=== PATIENT | male | born 1995 | race Caucasian/White ===

== ENCOUNTER 2017-08-01 17:35 | Emergency (ER) | payer OTHER ==
[~2017-08-01] VITALS: Ht 180.3 cm; Wt 117.9 kg
[2017-08-01 17:43] VITALS: BP 109/67
[2017-08-01 20:15] VITALS: BP 116/64
== END 2017-08-01 20:15 | disposition home or self-care (01) ==
LOC: MED 17:53
DX: K04.7 Periapical abscess without sinus (principal)
CPT/HCPCS: 70110; 99284

== ENCOUNTER 2018-08-11 11:04 | Emergency (ER) | payer SELFPAY ==
[~2018-08-11] VITALS: Ht 180.3 cm; Wt 86.2 kg
[2018-08-11 11:16] VITALS: BP 134/78
--- NOTE | 2018-08-11 11:16 | NUR ---
Patient ambulated to bed 12. RN evaluating patient at bedside.
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
--- NOTE | 2018-08-11 11:23 | NUR ---
Pop fontanez in ED - 08/11/18 at 1124 by [email or web address] Patient ambulated to bed 5 with family. RN evaluating patient at bedside.
--- NOTE | 2018-08-11 11:23 | NUR ---
Patient ambulated to bed 5 with family. RN evaluating patient at bedside.
--- NOTE | 2018-08-11 13:25 | NUR ---
PT NOT IN ROOM 12 NOR IN ER LOBBY
== END 2018-08-11 13:20 | disposition left against medical advice (07) ==
LOC: MED 11:04
DX: M54.6 Pain in thoracic spine (principal); Z53.21 Procedure and treatment not carried out due to patient leaving prior to being seen by health care provider; V19.9XXA Pedal cyclist (driver) (passenger) injured in unspecified traffic accident, initial encounter; Y93.89 Activity, other specified; Y92.89 Other specified places as the place of occurrence of the external cause; Y99.8 Other external cause status

== ENCOUNTER 2019-06-30 18:13 | Emergency (ER) | payer SELFPAY ==
[~2019-06-30] VITALS: Ht 177.8 cm; Wt 90.7 kg
[2019-06-30 18:34] VITALS: BP 113/61
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
[2019-06-30] MEDS ORDERED: IBUPROFEN 600 MG TAB PO ONE (18:50)
[2019-06-30] MEDS ORDERED: BACITRACIN OINT 500 UNITS/GM PKT TP ONE (18:50)
--- NOTE | 2019-06-30 19:05 | NUR ---
Patient discharged with v/s stable. Written and verbal after care instructions given and explained. Patient alert, oriented and verbalized understanding of instructions. Ambulatory with steady gait. All questions addressed prior to discharge. ID band removed. Patient advised to follow up with PMD. Rx of KEFLEX & IBUPROFEN given. Patient educated on indication of medication including possible reaction and side effects. Opportunity to ask questions provided and answered.
[2019-06-30 19:06] VITALS: BP 110/60
== END 2019-06-30 19:05 | disposition home or self-care (01) ==
LOC: MED 18:13
DX: L02.512 Cutaneous abscess of left hand (principal); L03.012 Cellulitis of left finger; F17.210 Nicotine dependence, cigarettes, uncomplicated
CPT/HCPCS: 99283

== ENCOUNTER 2019-07-04 13:43 | Emergency (ER) | payer SELFPAY ==
[~2019-07-04] VITALS: Ht 180.3 cm; Wt 96.2 kg
[2019-07-04 13:47] VITALS: BP 144/68
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
[2019-07-04] MEDS ORDERED: NACL 0.9% 1,000 ML IV SCH (14:06)
[2019-07-04] MEDS ORDERED: VANCOMYCIN 1,000 MG in DEXTROSE 5% 250 ML IV ONE (14:10)
[2019-07-04] MEDS ORDERED: VANCOMYCIN 1GM/DEXT 5% PREMIX 200 ML IV ONE (14:10)
[2019-07-04] MEDS ORDERED: LIDOCAINE MPF 1% 10 MG/ML VIAL INJ ONE ×2 (14:10→15:25)
[2019-07-04] MEDS ORDERED: VANCOMYCIN 1,000 MG VIAL ONE (14:40)
[2019-07-04 14:42] LABS: BASOPHILS # (AUTO) 0.1 K/uL (0.00-0.22); BASOPHILS % (AUTO) 0.8 % (0.0-2.0); EOSINOPHILS # (AUTO) 0.1 K/uL (0-0.4); EOSINOPHILS % (AUTO) 0.7 % (0.0-4.0); HEMATOCRIT 40.7 % (36-52); HEMOGLOBIN 13.7 g/dL (12.0-18.0); LYMPHOCYTES # (AUTO) 0.8 K/uL (2.0-11.5); LYMPHOCYTES % (AUTO) 7.8 % (20.5-51.1); MEAN CORPUSCULAR HEMOGLOBIN 30 pg (27-31); MEAN CORPUSCULAR HGB CONC 34 g/dL (33-37); MEAN CORPUSCULAR VOLUME 88.6 fL (80-94); MONOCYTES # (AUTO) 0.8 K/uL (0.8-1.0); MONOCYTES % (AUTO) 7.7 % (1.7-9.3); NEUTROPHILS # (AUTO) 8.1 K/uL (1.8-7.7); PLATELET COUNT (AUTO) 241 K/uL (140-450); RED BLOOD CELL COUNT(AUTO) 4.59 MIL/uL (4.20-6.10); WHITE BLOOD COUNT (AUTO) 9.8 K/uL (4.8-10.8)
[2019-07-04 14:58] LABS: ALBUMIN 3.6 g/dL (3.4-5.0); ANION GAP 10.4 (8-16); CARBON DIOXIDE 30.5 mmol/L (21-32); CREATININE 0.8 mg/dL (0.6-1.3); POTASSIUM 3.9 mmol/L (3.5-5.1); TOTAL BILIRUBIN 0.8 mg/dL (0.0-1.0)
[2019-07-04] MEDS ORDERED: LIDOCAINE MPF 1% 5 ML ONE (15:16)
--- NOTE | 2019-07-04 15:21 | NUR ---
LACERATION SETUP AT BEDSIDE ALONG WITH LIDOCAINE
--- NOTE | 2019-07-04 15:55 | NUR ---
ESTRELLA LAI AT BEDSIDE FOR I&D
[2019-07-04] MEDS ORDERED: BACITRACIN OINT 500 UNITS/GM PKT TP ONE (16:13)
[2019-07-04 17:27] VITALS: BP 103/58
--- NOTE | 2019-07-04 17:29 | NUR ---
Patient discharged with v/s stable. Written and verbal after care instructions given and explained. Patient alert, oriented and verbalized understanding of instructions. Ambulatory with steady gait. All questions addressed prior to discharge. ID band removed. Patient advised to follow up with PMD. Rx of KEFLEX, BACTRIM, TRAMADOL, IBUPROFEN given. Patient educated on indication of medication including possible reaction and side effects. Opportunity to ask questions provided and answered.
== END 2019-07-04 17:29 | disposition home or self-care (01) ==
LOC: MED 13:43
DX: L03.012 Cellulitis of left finger (principal)
CPT/HCPCS: 10060; 36415; 73140; 80053; 83605; 85025; 87040; 96365; 96366; 99284; J2001; J3370; J7030; Q0092; 99283

== ENCOUNTER 2019-07-15 00:34 | Emergency (ER) | payer SELFPAY ==
[~2019-07-15] VITALS: Ht 172.7 cm; Wt 98.9 kg
[2019-07-15 00:43] VITALS: BP 105/64
[2019-07-15] MEDS ORDERED: VANCOMYCIN 1,000 MG in DEXTROSE 5% 250 ML IV ONE (01:20)
[2019-07-15] MEDS ORDERED: AMPICILLIN/SULBACTAM 3 GM in NACL 0.9% 100 ML IV ONE (01:20)
[2019-07-15] MEDS ORDERED: VANCOMYCIN 1,000 MG VIAL ONE ×2 (01:25)
[2019-07-15] MEDS ORDERED: AMPICILLIN/SULBACTAM 3 GM VIAL ONE (01:25)
[2019-07-15 01:36] LABS: BASOPHILS # (AUTO) 0.1 K/uL (0.00-0.22); BASOPHILS % (AUTO) 0.6 % (0.0-2.0); EOSINOPHILS # (AUTO) 0.2 K/uL (0-0.4); EOSINOPHILS % (AUTO) 1.6 % (0.0-4.0); HEMATOCRIT 41.5 % (36-52); HEMOGLOBIN 13.6 g/dL (12.0-18.0); LYMPHOCYTES # (AUTO) 0.8 K/uL (2.0-11.5); MEAN CORPUSCULAR HEMOGLOBIN 29 pg (27-31); MEAN CORPUSCULAR HGB CONC 33 g/dL (33-37); MEAN CORPUSCULAR VOLUME 88.3 fL (80-94); MONOCYTES # (AUTO) 0.7 K/uL (0.8-1.0); MONOCYTES % (AUTO) 7.2 % (1.7-9.3); NEUTROPHILS # (AUTO) 8.3 K/uL (1.8-7.7); NEUTROPHILS % (AUTO) 82.7 % (42.2-75.2); PLATELET COUNT (AUTO) 294 K/uL (140-450); RED CELL DISTRIBUTION WIDTH 13.6 % (11.6-13.7)
[2019-07-15 01:49] LABS: LYMPHOCYTES % (AUTO) 7.9 % (20.5-51.1)
[2019-07-15 01:56] LABS: ALBUMIN 3.2 g/dL (3.4-5.0); ANION GAP 9.1 (8-16); CARBON DIOXIDE 31.7 mmol/L (21-32); POTASSIUM 3.8 mmol/L (3.5-5.1); TOTAL BILIRUBIN 0.5 mg/dL (0.0-1.0)
[2019-07-15] MEDS ORDERED: LIDOCAINE 2% 1000 MG/50 ML VIAL INJ ONE (03:30)
[2019-07-15] MEDS ORDERED: NEOMYCIN/POLYMYXIN/BACITRACIN 0.9 GM/1 PKT TP ONE (03:55)
[2019-07-15 04:35] VITALS: BP 118/70
== END 2019-07-15 04:34 | disposition home or self-care (01) ==
LOC: MED 00:34
DX: L02.511 Cutaneous abscess of right hand (principal); L03.011 Cellulitis of right finger
CPT/HCPCS: 26010; 36415; 73130; 73140; 80053; 82553; 85025; 85651; 86140; 96365; 96366; 96368; 99285; J0295; J2001; J3370; Q0092